=== PATIENT | male | born 1970 | race Caucasian/White ===

== ENCOUNTER → 2024-10-11 08:15 | Outpatient (REF) | payer SELFPAY | LOC: HWRAD 08:15 | PROVIDERS: ATTENDING PHYSICIAN Internal Medicine Cardiovascular Disease; FAMILY PHYSICIAN Internal Medicine | DX: Z00.00 Encounter for general adult medical examination without abnormal findings (principal) | CPT/HCPCS: 75571 ==

== ENCOUNTER → 2024-11-28 06:48 | Outpatient (REF) | payer OTHER, SELFPAY | LOC: RAD 06:48 | PROVIDERS: ATTENDING PHYSICIAN Internal Medicine | DX: R10.9 Unspecified abdominal pain (principal) | CPT/HCPCS: 74177; Q9967 ==